=== PATIENT | female | born 1995 | race Caucasian/White ===

== ENCOUNTER 2016-10-27 13:50 | Outpatient (CLI) | payer BC, OTHER ==
[~2016-10-27] VITALS: Ht 170.2 cm; Wt 73.2 kg
[~2016-10-27 13:50] MED LIST: BIRTH CONTROL PO; NAPROSYN500 MG PO; ULTRAM50 MG PO
[2016-10-27 14:57] LABS: EOSINOPHIL (%) 0.4 % (0-5); EOSINOPHIL COUNT 0.1 K/uL (0-0.3); IMMATURE GRANULOCYTE (%) 0.6 % (0.0-0.7); IMMATURE GRANULOCYTE COUNT 0.1 K/uL; LYMPHOCYTE COUNT 1.7 K/uL (1.0-2.8); MCHC 32.3 G/DL (30.0-36.0); MCV 80.5 FL (83-99); MEAN PLAT.VOLUME 10.5 uM^3 (9.5-12.4); MONOCYTE (%) 7.1 % (3-12); MONOCYTE COUNT 0.8 K/uL (0-0.8); NEUTROPHIL (%) 76.9 % (45-76); PLATELET COUNT 363 K/uL (156-360); RBC DIS.WIDTH-CV 14.6 % (11.8-14.6); RBC DIS.WIDTH-SD 42.7 % (39-53); RED BLOOD COUNT 3.85 M/uL (3.80-5.20); WHITE BLOOD COUNT 11.7 K/uL (4.1-10.2)
== END 2016-10-27 18:25 | disposition home or self-care (01) ==
LOC: LDRP-OP 13:50 → 2WEST 13:51
PROVIDERS: Obstetrics & Gynecology
DX: O26.893 Other specified pregnancy related conditions, third trimester (principal); R10.9 Unspecified abdominal pain; W10.9XXA Fall (on) (from) unspecified stairs and steps, initial encounter; Z3A.36 36 weeks gestation of pregnancy
CPT/HCPCS: 59025; 76805; 85025; 85460; G0378; J7120

== ENCOUNTER 2017-01-21 23:40 | Inpatient (IN) | payer OTHER ==
[~2017-01-21] VITALS: Ht 170.2 cm; Wt 73.0 kg
[2017-01-21 23:56] VITALS: BP 122/69
[2017-01-22] VITALS (17 sets, daily range): BP systolic 104–138; BP diastolic 54–74
[2017-01-22 00:57] LABS: EOSINOPHIL (%) 0.3 % (0-5); HEMATOCRIT 32.5 % (36.0-46.0); IMMATURE GRANULOCYTE (%) 0.3 % (0.0-0.7); INSTRUMENT ABS NEUTROPHIL CT 8.7 K/uL; LYMPHOCYTE COUNT 2.3 K/uL (1.0-2.8); MCH 23.3 PG (29.0-34.0); MCHC 31.7 G/DL (30.0-36.0); MCV 73.5 FL (83-99); MEAN PLAT.VOLUME 10.4 uM^3 (9.5-12.4); MONOCYTE (%) 6.6 % (3-12); MONOCYTE COUNT 0.8 K/uL (0-0.8); NEUTROPHIL (%) 73.2 % (45-76); NEUTROPHIL COUNT 8.7 K/uL (1.8-6.4); PLATELET COUNT 364 K/uL (156-360); RBC DIS.WIDTH-CV 15.7 % (11.8-14.6); RBC DIS.WIDTH-SD 41.1 % (39-53); RED BLOOD COUNT 4.42 M/uL (3.80-5.20); WHITE BLOOD COUNT 11.9 K/uL (4.1-10.2)
[2017-01-23 03:00] VITALS: BP 113/62
[2017-01-23 06:31] LABS: EOSINOPHIL (%) 0.6 % (0-5); EOSINOPHIL COUNT 0.1 K/uL (0-0.3); HEMATOCRIT 27.8 % (36.0-46.0); IMMATURE GRANULOCYTE (%) 0.5 % (0.0-0.7); IMMATURE GRANULOCYTE COUNT 0.1 K/uL; INSTRUMENT ABS NEUTROPHIL CT 8.3 K/uL; LYMPHOCYTE COUNT 3.6 K/uL (1.0-2.8); MCH 22.7 PG (29.0-34.0); MCHC 30.2 G/DL (30.0-36.0); MCV 75.1 FL (83-99); MEAN PLAT.VOLUME 10.9 uM^3 (9.5-12.4); MONOCYTE (%) 6.4 % (3-12); MONOCYTE COUNT 0.8 K/uL (0-0.8); NEUTROPHIL (%) 64.2 % (45-76); NEUTROPHIL COUNT 8.3 K/uL (1.8-6.4); PLATELET COUNT 291 K/uL (156-360); RBC DIS.WIDTH-SD 43.7 % (39-53); WHITE BLOOD COUNT 12.9 K/uL (4.1-10.2)
[2017-01-23 07:50] VITALS: BP 117/59
[2017-01-23 18:58] VITALS: BP 102/55
[2017-01-23 22:59] VITALS: BP 115/58
[2017-01-24 02:58] VITALS: BP 126/58
[2017-01-24 14:41] VITALS: BP 120/71
[2017-01-24 23:15] VITALS: BP 119/63
[2017-01-25 07:37] VITALS: BP 124/70
[2017-01-25] MEDS ORDERED: IBUPROFEN800 MG PO (07:49)
[2017-01-25] MEDS ORDERED: ENDOCET 5-3251 EACH PO (07:49)
== END 2017-01-25 12:28 | disposition home or self-care (01) | DRG 766 ==
LOC: LDRP-OP 23:40 → 2WEST 23:41 → LDRP-OP 03-02 14:48
PROVIDERS: Midwife; Obstetrics & Gynecology
PROC: 10D00Z1 Extraction of Products of Conception, Low, Open Approach (ICD-10-PCS; principal; 2017-01-22)
PROC: 3E0R3BZ Introduction of Anesthetic Agent into Spinal Canal, Percutaneous Approach (ICD-10-PCS; principal; 2017-01-22)
PROC: 00HU33Z Insertion of Infusion Device into Spinal Canal, Percutaneous Approach (ICD-10-PCS; principal; 2017-01-22)
DX: O76 Abnormality in fetal heart rate and rhythm complicating labor and delivery (principal); O99.824 Streptococcus B carrier state complicating childbirth; Z3A.38 38 weeks gestation of pregnancy; Z37.0 Single live birth
CPT/HCPCS: 85025; 88307; C1755; G0378; J0595; J0690; J2175; J2274; J2405; J2540; J2765; J7120